=== PATIENT | male | born 1955 | race Caucasian/White ===

== ENCOUNTER 2017-08-04 12:47 | Inpatient (IN) | payer MEDICARE, MEDICAID ==
[~2017-08-04] VITALS: Ht 185.4 cm; Wt 110.0 kg
[~2017-08-04 12:47] MED LIST: ALBU8HFA PO; DABI150C PO; DILT180C96 PO; DOCU-29 PO; ESZO3TAB27 PO; FLUT1DIS7 INH; FURO-150 PO; GABA-532 PO; LEVO50TA PO; METF500T PO; METO-384 PO; MULT-1179 PO; NICO-687 TOP; PANT40TA4 PO; POTA-82 PO; QUET200T3 PO; RISP3TAB11 PO
[2017-08-04] MEDS ORDERED: ipratropium/albuterol 3ml nebule NEB PRN ×2 (13:15→14:10)
[2017-08-04 13:27] LABS: BASOPHILS % (AUTO) 0.3 % (0-1); EOSINOPHILS # (AUTO) 0.2 X10'3 (0-0.9); EOSINOPHILS % (AUTO) 1.4 % (0-6); HEMATOCRIT 44.9 % (42.0-52.0); HEMOGLOBIN 15.5 g/dl (14.0-17.9); LYMPHOCYTES # (AUTO) 1.4 X10'3 (1.1-4.8); LYMPHOCYTES % (AUTO) 13.1 % (21-51); MEAN CORPUSCULAR HEMOGLOBIN 30.4 PG (27.0-31.0); MEAN CORPUSCULAR HGB CONC 34.5 % (33.0-36.5); MEAN PLATELET VOLUME 8.7 FL (7.4-10.4); MONOCYTES # (AUTO) 1.3 X10'3 (0-0.9); MONOCYTES % (AUTO) 12.4 % (2-12); NEUTROPHILS # (AUTO) 7.7 X10'3 (1.8-7.7); NEUTROPHILS % (AUTO) 72.8 % (42-75); PLATELET COUNT 149 X10'3 (140-440); RED BLOOD COUNT 5.11 X10'6 (4.70-6.10); RED CELL DISTRIBUTION WIDTH 13.9 % (11.5-14.5); WHITE BLOOD COUNT 10.6 X10'3 (4.5-11.0)
[2017-08-04 13:37] LABS: PARTIAL THROMBOPLASTIN TIME 30 SECONDS (22-32); PROTHROMBIN TIME 10.7 SECONDS (9.0-12.0)
[2017-08-04 13:44] LABS: LACTIC SEPSIS 1.4 MMOL/L (0.4-2.0)
[2017-08-04 13:46] LABS: ALANINE AMINOTRANSFERASE 28 U/L (12-78); ALBUMIN 3.8 G/DL (3.4-5.0); ALKALINE PHOSPHATASE 70 IU/L (46-116); ANION GAP 13 (8-16); ASPARTATE AMINO TRANSFERASE 24 U/L (10-37); BILIRUBIN,TOTAL 0.4 MG/DL (0.1-1.0); BLOOD UREA NITROGEN 18 MG/DL (7-18); CALCIUM 9.2 MG/DL (8.5-10.1); CHLORIDE 102 MMOL/L (99-107); CREATININE 1.38 MG/DL (0.60-1.10); ETHANOL < 0.010 GM/DL (0.0-0.010); GLUCOSE 108 MG/DL (70-104); POTASSIUM 3.9 MMOL/L (3.5-5.1); SODIUM 138 MMOL/L (135-145); TOTAL CARBON DIOXIDE 22.6 MMOL/L (24-32); TOTAL PROTEIN 7.7 G/DL (6.4-8.2); TROPONIN I < 0.04 NG/ML (0.0-0.05); eGFR 52 ML/MIN
[2017-08-04] MEDS ORDERED: ipratropium/albuterol 3ml nebule NEB SCH (15:00)
[2017-08-04] MEDS: normal saline 1000ml 1,000 ML IV SCH (15:08)
[2017-08-04] MEDS ORDERED: potassium Cl 40MEQ/NS 500ml 500 ML IV PRN ×2 (15:10)
[2017-08-04] MEDS ORDERED: dextrose 50%-water 50ml dispensing syringe IV PRN (15:10)
[2017-08-04] MEDS ORDERED: potassium Cl 20 mEq SR tablet PO PRN ×2 (15:10)
[2017-08-04] MEDS ORDERED: acetaminophen 325mg tablet PO PRN (15:10)
[2017-08-04] MEDS ORDERED: HYDROcodone/acetaminophen 5mg/325mg tablet PO PRN (15:10)
[2017-08-04] MEDS ORDERED: magnesium hydroxide 30ml (MOM) UD suspension PO PRN (15:10)
[2017-08-04] MEDS ORDERED: non-formulary drug (Eszopiclone (Lunesta) 1 TAB) PO PRN (15:10)
[2017-08-04] MEDS ORDERED: mag hydrox/Alum hydrox/simeth 30ml oral suspension PO PRN (15:10)
[2017-08-04] MEDS ORDERED: magnesium 2GM in 50ml NS 50 ML IV PRN (15:10)
[2017-08-04] MEDS ORDERED: thiamine 100mg/ml 2ml inj. IV ONE (15:10)
[2017-08-04] MEDS ORDERED: magnesium 4gm in 100ml NS 100 ML IV PRN (15:10)
[2017-08-04] MEDS ORDERED: haloperidol lactate 5mg/ml inj IM PRN (15:10)
[2017-08-04] MEDS ORDERED: haloperidol 5mg tablet PO PRN (15:10)
[2017-08-04] MEDS ORDERED: magnesium Cl slow-release 64mg tablet PO PRN (15:10)
[2017-08-04] MEDS ORDERED: LORazepam 2 mg/ml vial IV PRN (15:10)
[2017-08-04] MEDS ORDERED: ondansetron/PF 4mg/2ml inj IV PRN (15:10)
[2017-08-04] MEDS ORDERED: docusate sod 250mg capsule PO PRN (15:10)
[2017-08-04] MEDS ORDERED: HYDROcodone/acetaminophen 10/325mg tab PO PRN (15:10)
[2017-08-04] MEDS ORDERED: zolpidem 5mg tablet PO PRN (15:20)
[2017-08-04] MEDS ORDERED: normal saline 1000ml 1,000 ML IV ONE (15:40)
[2017-08-04] MEDS ORDERED: pantoprazole 40 MG vial IV ONE (15:40)
[2017-08-04 16:15] VITALS: BP 137/82
[2017-08-04 17:13] LABS: HEMOGLOBIN A1C 6.1 % (4.5-6.2)
[2017-08-04 18:00] VITALS: BP 149/102
[2017-08-04 18:35] VITALS: BP 146/97
[2017-08-04] MEDS ORDERED: thiamine inj. 100 MG in normal saline 100ml IV soln 99 ML IV ONE (19:05)
[2017-08-04] MEDS: ipratropium/albuterol 3ml nebule NEB SCH ×2 (19:59→23:39)
[2017-08-04] MEDS ORDERED: non-formulary drug (Fluticasone/Salmeterol (Advair 500-50 Diskus) 1 PUFFS) INH SCH (20:00)
[2017-08-04] MEDS ORDERED: METOPROLOL SUCCINATE 50 MG PO SCH (20:00)
[2017-08-04] MEDS: gabapentin 300mg capsule PO SCH (20:38)
[2017-08-04] MEDS: metFORMIN 500mg tablet PO SCH (20:38)
[2017-08-04] MEDS: risperiDONE 0.5mg tablet PO SCH (20:39)
[2017-08-04] MEDS: dabigatran 150mg capsule PO SCH (20:39)
[2017-08-04] MEDS: benzonatate 100mg capsule PO SCH (20:39)
[2017-08-04] MEDS: metoprolol succinate 25mg (24-HOUR) SR. Tablet PO SCH (20:39)
[2017-08-04] MEDS: QUETIAPINE 200 MG TAB.SR.24H PO SCH (20:39)
[2017-08-04] MEDS ORDERED: RISPERIDONE 3 MG PO SCH (21:00)
[2017-08-04 22:00] VITALS: BP 159/86
[2017-08-05] MEDS: normal saline 1000ml 1,000 ML IV SCH ×2 (01:08→01:44)
[2017-08-05 01:28] LABS: CLARITY,URINE CLEAR (Clear); COLOR,URINE YELLOW (Yellow); GLUCOSE, URINE NEGATIVE (Neg); KETONES,URINE 15 mg/dl (Neg); LEUKOCYTE ESTERASE ,URINE NEGATIVE (Neg); NITRITES, URINE NEGATIVE (Neg); OCCULT BLOOD,URINE SMALL (Neg); PROTEIN,URINE 30 mg/dl (Neg); UROBILINOGEN,URINE 0.2 E.U/dL (0.2-1.0)
[2017-08-05 01:33] LABS: BACTERIA,URINE NONE SEEN /HPF (Neg); RBC,URINE 0-2 /HPF (0-2); SQUAMOUS EPITHELIAL CELL,UR FEW /LPF (FEW); UA COLLECTION TYPE URINAL; WBC,URINE NONE SEEN /HPF (0-4)
[2017-08-05 01:44] LABS: URINE AMPHETAMINE SCREEN NEGATIVE (Neg); URINE BARBITUATE SCREEN NEGATIVE (Neg); URINE BENZODIAZEPINES SCREEN NEGATIVE (Neg); URINE CANNABINOID SCREEN POSITIVE (Neg); URINE COCAINE SCREEN NEGATIVE (Neg); URINE METHADONE SCREEN NEGATIVE (Neg); URINE OPIATE SCREEN NEGATIVE (Neg); URINE PHENCYCLIDINE SCREEN NEGATIVE (Neg)
[2017-08-05 02:15] VITALS: BP 154/89
[2017-08-05] MEDS: ipratropium/albuterol 3ml nebule NEB SCH ×6 (04:05→22:45)
[2017-08-05 06:00] VITALS: BP 137/88
[2017-08-05 06:10] LABS: BASOPHILS % (AUTO) 0.4 % (0-1); EOSINOPHILS # (AUTO) 0.1 X10'3 (0-0.9); EOSINOPHILS % (AUTO) 1.9 % (0-6); HEMATOCRIT 40.3 % (42.0-52.0); LYMPHOCYTES # (AUTO) 1.2 X10'3 (1.1-4.8); LYMPHOCYTES % (AUTO) 17.8 % (21-51); MEAN CORPUSCULAR HEMOGLOBIN 30.5 PG (27.0-31.0); MEAN CORPUSCULAR HGB CONC 34.7 % (33.0-36.5); MEAN CORPUSCULAR VOLUME 87.9 FL (78-98); MEAN PLATELET VOLUME 8.6 FL (7.4-10.4); MONOCYTES % (AUTO) 14.4 % (2-12); NEUTROPHILS # (AUTO) 4.5 X10'3 (1.8-7.7); NEUTROPHILS % (AUTO) 65.5 % (42-75); PLATELET COUNT 108 X10'3 (140-440); RED BLOOD COUNT 4.59 X10'6 (4.70-6.10); WHITE BLOOD COUNT 6.9 X10'3 (4.5-11.0)
[2017-08-05 06:21] LABS: INR 1.1 INR; PROTHROMBIN TIME 10.9 SECONDS (9.0-12.0)
[2017-08-05 06:23] LABS: ANION GAP 12 (8-16); BLOOD UREA NITROGEN 17 MG/DL (7-18); BUN/CREATININE RATIO 13.3 (5.4-32.0); CALCIUM 8.3 MG/DL (8.5-10.1); CHLORIDE 104 MMOL/L (99-107); CREATININE 1.28 MG/DL (0.60-1.10); GLUCOSE 99 MG/DL (70-104); MAGNESIUM 1.9 MG/DL (1.5-2.4); POTASSIUM 3.5 MMOL/L (3.5-5.1); SODIUM 139 MMOL/L (135-145); TOTAL CARBON DIOXIDE 23.1 MMOL/L (24-32); eGFR 57 ML/MIN
[2017-08-05] MEDS: fluticasone/vilanterol 200mcg/25mcg inhaler IH SCH (08:00)
[2017-08-05] MEDS: K and/or MAG REPLACEMENT MC SCH (08:00)
[2017-08-05] MEDS ORDERED: non-formulary drug (Levothyroxine Sodium (Synthroid) 1 TAB) PO SCH (08:00)
[2017-08-05] MEDS ORDERED: non-formulary drug (Potassium Chloride 1 TAB) PO SCH (08:00)
[2017-08-05] MEDS: levoTHYROXINE 25mcg tablet PO SCH (08:30)
[2017-08-05] MEDS: potassium Cl 20 mEq SR tablet PO SCH (08:31)
[2017-08-05] MEDS: dabigatran 150mg capsule PO SCH ×2 (08:31→19:44)
[2017-08-05] MEDS: furosemide 20MG tablet PO SCH (08:31)
[2017-08-05] MEDS: metoprolol succinate 25mg (24-HOUR) SR. Tablet PO SCH ×2 (08:31→19:44)
[2017-08-05] MEDS: metFORMIN 500mg tablet PO SCH ×2 (08:31→19:43)
[2017-08-05] MEDS: pantoprazole 40mg Tablet.DR PO SCH (08:31)
[2017-08-05] MEDS: diltiazem CD 180mg cap (once-daily) PO SCH (08:31)
[2017-08-05] MEDS: multivitamins, therapeutics tablet PO SCH (08:31)
[2017-08-05] MEDS: benzonatate 100mg capsule PO SCH ×2 (08:32→19:45)
[2017-08-05 10:00] VITALS: BP 137/93
[2017-08-05 15:00] VITALS: BP 148/98
[2017-08-05 18:00] VITALS: BP 148/98
[2017-08-05] MEDS: QUETIAPINE 200 MG TAB.SR.24H PO SCH (19:44)
[2017-08-05] MEDS: risperiDONE 0.5mg tablet PO SCH (19:45)
[2017-08-05] MEDS: gabapentin 300mg capsule PO SCH (19:45)
[2017-08-05 22:00] VITALS: BP 144/94
[2017-08-05] MEDS: lisinopril 5mg tablet PO SCH (22:02)
[2017-08-06] MEDS: ipratropium/albuterol 3ml nebule NEB SCH ×6 (02:34→22:54)
[2017-08-06 06:00] VITALS: BP 135/90
[2017-08-06 06:00] LABS: BASOPHILS % (AUTO) 0.5 % (0-1); EOSINOPHILS # (AUTO) 0.1 X10'3 (0-0.9); EOSINOPHILS % (AUTO) 2.1 % (0-6); HEMATOCRIT 38.3 % (42.0-52.0); HEMOGLOBIN 13.3 g/dl (14.0-17.9); LYMPHOCYTES # (AUTO) 1.4 X10'3 (1.1-4.8); LYMPHOCYTES % (AUTO) 19.4 % (21-51); MEAN CORPUSCULAR HEMOGLOBIN 30.1 PG (27.0-31.0); MEAN CORPUSCULAR HGB CONC 34.7 % (33.0-36.5); MEAN PLATELET VOLUME 8.6 FL (7.4-10.4); NEUTROPHILS # (AUTO) 4.6 X10'3 (1.8-7.7); PLATELET COUNT 118 X10'3 (140-440); WHITE BLOOD COUNT 7.2 X10'3 (4.5-11.0)
[2017-08-06 06:08] LABS: INR 1.1 INR; PROTHROMBIN TIME 11.2 SECONDS (9.0-12.0)
[2017-08-06 06:30] LABS: ANION GAP 12 (8-16); BLOOD UREA NITROGEN 17 MG/DL (7-18); CALCIUM 8.4 MG/DL (8.5-10.1); CHLORIDE 101 MMOL/L (99-107); CHOL/HDL RATIO 3.4 (0.00-4.99); CHOLESTEROL 127 MG/DL (0-200); CREATININE 1.31 MG/DL (0.60-1.10); GLUCOSE 114 MG/DL (70-104); HDL CHOLESTEROL 37 MG/DL (35-60); LDL CHOLESTEROL 68 MG/DL (50-100); MAGNESIUM 1.6 MG/DL (1.5-2.4); POTASSIUM 3.4 MMOL/L (3.5-5.1); SODIUM 137 MMOL/L (135-145); TOTAL CARBON DIOXIDE 23.6 MMOL/L (24-32); TRIGLYCERIDES 73 MG/DL (20-135); eGFR 55 ML/MIN
[2017-08-06] MEDS: K and/or MAG REPLACEMENT MC SCH (08:00)
[2017-08-06] MEDS: fluticasone/vilanterol 200mcg/25mcg inhaler IH SCH (08:10)
[2017-08-06] MEDS: lisinopril 5mg tablet PO SCH (08:58)
[2017-08-06] MEDS: diltiazem CD 180mg cap (once-daily) PO SCH (08:58)
[2017-08-06] MEDS: metoprolol succinate 25mg (24-HOUR) SR. Tablet PO SCH ×2 (08:58→20:24)
[2017-08-06] MEDS: levoTHYROXINE 25mcg tablet PO SCH (08:58)
[2017-08-06] MEDS: pantoprazole 40mg Tablet.DR PO SCH (08:58)
[2017-08-06] MEDS: metFORMIN 500mg tablet PO SCH ×2 (08:58→20:24)
[2017-08-06] MEDS: potassium Cl 20 mEq SR tablet PO SCH (08:58)
[2017-08-06] MEDS: dabigatran 150mg capsule PO SCH ×2 (08:59→20:25)
[2017-08-06] MEDS: furosemide 20MG tablet PO SCH (08:59)
[2017-08-06] MEDS: benzonatate 100mg capsule PO SCH (08:59)
[2017-08-06] MEDS: multivitamins, therapeutics tablet PO SCH (08:59)
[2017-08-06 10:00] VITALS: BP 138/96
[2017-08-06] MEDS ORDERED: benzonatate 100mg capsule PO PRN (10:10)
[2017-08-06] MEDS ORDERED: polyethylene glycol 3350 17gm powd pack PO PRN (10:10)
[2017-08-06] MEDS: LORazepam 1 MG tablet PO PRN ×2 (12:18→22:33)
[2017-08-06] MEDS ORDERED: LORazepam 2 mg/ml vial IV PRN (15:10)
[2017-08-06] MEDS ORDERED: LORazepam 1 MG tablet PO PRN (15:10)
[2017-08-06 18:00] VITALS: BP 152/102
[2017-08-06] MEDS: gabapentin 300mg capsule PO SCH (20:24)
[2017-08-06] MEDS: risperiDONE 0.5mg tablet PO SCH (20:25)
[2017-08-06] MEDS: QUETIAPINE 200 MG TAB.SR.24H PO SCH (20:25)
[2017-08-06 22:00] VITALS: BP 149/104
[2017-08-07] MEDS: ipratropium/albuterol 3ml nebule NEB SCH ×6 (02:57→23:28)
[2017-08-07 06:00] VITALS: BP 145/98
[2017-08-07 06:01] LABS: BASOPHILS % (AUTO) 0.4 % (0-1); EOSINOPHILS # (AUTO) 0.1 X10'3 (0-0.9); EOSINOPHILS % (AUTO) 2.1 % (0-6); HEMATOCRIT 39.4 % (42.0-52.0); HEMOGLOBIN 13.5 g/dl (14.0-17.9); LYMPHOCYTES # (AUTO) 1.5 X10'3 (1.1-4.8); LYMPHOCYTES % (AUTO) 22.8 % (21-51); MEAN CORPUSCULAR HEMOGLOBIN 30.2 PG (27.0-31.0); MEAN CORPUSCULAR HGB CONC 34.4 % (33.0-36.5); MEAN CORPUSCULAR VOLUME 87.9 FL (78-98); MEAN PLATELET VOLUME 8.5 FL (7.4-10.4); MONOCYTES # (AUTO) 0.7 X10'3 (0-0.9); MONOCYTES % (AUTO) 11.2 % (2-12); NEUTROPHILS # (AUTO) 4.1 X10'3 (1.8-7.7); NEUTROPHILS % (AUTO) 63.5 % (42-75); PLATELET COUNT 118 X10'3 (140-440); RED BLOOD COUNT 4.48 X10'6 (4.70-6.10); RED CELL DISTRIBUTION WIDTH 13.7 % (11.5-14.5); WHITE BLOOD COUNT 6.5 X10'3 (4.5-11.0)
[2017-08-07 06:18] LABS: ANION GAP 10 (8-16); BLOOD UREA NITROGEN 16 MG/DL (7-18); BUN/CREATININE RATIO 12.9 (5.4-32.0); CALCIUM 8.9 MG/DL (8.5-10.1); CHLORIDE 101 MMOL/L (99-107); CREATININE 1.24 MG/DL (0.60-1.10); GLUCOSE 112 MG/DL (70-104); MAGNESIUM 1.6 MG/DL (1.5-2.4); POTASSIUM 3.7 MMOL/L (3.5-5.1); SODIUM 136 MMOL/L (135-145); eGFR 59 ML/MIN
[2017-08-07] MEDS: fluticasone/vilanterol 200mcg/25mcg inhaler IH SCH (07:27)
[2017-08-07] MEDS: K and/or MAG REPLACEMENT MC SCH (08:00)
[2017-08-07] MEDS: metFORMIN 500mg tablet PO SCH ×2 (08:01→20:53)
[2017-08-07] MEDS: potassium Cl 20 mEq SR tablet PO SCH (08:01)
[2017-08-07] MEDS: diltiazem CD 180mg cap (once-daily) PO SCH (08:01)
[2017-08-07] MEDS: aspirin 81mg tablet.DR PO SCH (08:01)
[2017-08-07] MEDS: lisinopril 5mg tablet PO SCH (08:01)
[2017-08-07] MEDS: metoprolol succinate 25mg (24-HOUR) SR. Tablet PO SCH ×2 (08:02→20:54)
[2017-08-07] MEDS: furosemide 20MG tablet PO SCH (08:02)
[2017-08-07] MEDS: dabigatran 150mg capsule PO SCH ×2 (08:02→20:53)
[2017-08-07] MEDS: pantoprazole 40mg Tablet.DR PO SCH (08:02)
[2017-08-07] MEDS: multivitamins, therapeutics tablet PO SCH (08:02)
[2017-08-07] MEDS: levoTHYROXINE 25mcg tablet PO SCH (08:02)
[2017-08-07] MEDS: polyethylene glycol 3350 17gm powd pack PO SCH (08:05)
[2017-08-07 10:00] VITALS: BP 162/107
[2017-08-07] MEDS: LORazepam 1 MG tablet PO PRN ×3 (13:13→22:27)
[2017-08-07] MEDS: thiamine 100mg tablet PO SCH (17:10)
[2017-08-07] MEDS: folic acid 1mg tablet PO SCH (17:10)
[2017-08-07 18:00] VITALS: BP 141/96
[2017-08-07] MEDS: gabapentin 300mg capsule PO SCH (21:40)
[2017-08-07] MEDS: QUETIAPINE 200 MG TAB.SR.24H PO SCH (21:41)
[2017-08-07] MEDS: risperiDONE 0.5mg tablet PO SCH (21:41)
[2017-08-07 22:00] VITALS: BP 131/88
[2017-08-08] MEDS: ipratropium/albuterol 3ml nebule NEB SCH ×4 (02:53→15:00)
[2017-08-08 06:00] VITALS: BP_SYST 124; BP_SYST 141; BP_DIAS 86; BP_DIAS 96
[2017-08-08 06:12] LABS: BASOPHILS % (AUTO) 0.2 % (0-1); EOSINOPHILS # (AUTO) 0.2 X10'3 (0-0.9); EOSINOPHILS % (AUTO) 2.5 % (0-6); HEMATOCRIT 42.9 % (42.0-52.0); HEMOGLOBIN 14.9 g/dl (14.0-17.9); LYMPHOCYTES # (AUTO) 1.6 X10'3 (1.1-4.8); LYMPHOCYTES % (AUTO) 20.4 % (21-51); MEAN CORPUSCULAR HEMOGLOBIN 30.1 PG (27.0-31.0); MEAN CORPUSCULAR HGB CONC 34.8 % (33.0-36.5); MEAN CORPUSCULAR VOLUME 86.5 FL (78-98); MEAN PLATELET VOLUME 8.6 FL (7.4-10.4); MONOCYTES # (AUTO) 0.7 X10'3 (0-0.9); MONOCYTES % (AUTO) 8.5 % (2-12); NEUTROPHILS # (AUTO) 5.5 X10'3 (1.8-7.7); NEUTROPHILS % (AUTO) 68.4 % (42-75); PLATELET COUNT 145 X10'3 (140-440); RED BLOOD COUNT 4.96 X10'6 (4.70-6.10); RED CELL DISTRIBUTION WIDTH 13.7 % (11.5-14.5)
[2017-08-08 06:23] LABS: ALBUMIN 3.7 G/DL (3.4-5.0); ANION GAP 11 (8-16); BLOOD UREA NITROGEN 21 MG/DL (7-18); BUN/CREATININE RATIO 15.2 (5.4-32.0); CALCIUM 9.2 MG/DL (8.5-10.1); CHLORIDE 97 MMOL/L (99-107); CREATININE 1.38 MG/DL (0.60-1.10); GLUCOSE 120 MG/DL (70-104); MAGNESIUM 1.6 MG/DL (1.5-2.4); POTASSIUM 3.8 MMOL/L (3.5-5.1); SODIUM 134 MMOL/L (135-145); TOTAL CARBON DIOXIDE 25.7 MMOL/L (24-32); eGFR 52 ML/MIN
[2017-08-08] MEDS: polyethylene glycol 3350 17gm powd pack PO SCH (07:17)
[2017-08-08] MEDS: multivitamins, therapeutics tablet PO SCH (07:19)
[2017-08-08] MEDS: diltiazem CD 180mg cap (once-daily) PO SCH (07:19)
[2017-08-08] MEDS: thiamine 100mg tablet PO SCH (07:19)
[2017-08-08] MEDS: aspirin 81mg tablet.DR PO SCH (07:19)
[2017-08-08] MEDS: metFORMIN 500mg tablet PO SCH (07:19)
[2017-08-08] MEDS: levoTHYROXINE 25mcg tablet PO SCH (07:19)
[2017-08-08] MEDS: lisinopril 5mg tablet PO SCH (07:19)
[2017-08-08] MEDS: furosemide 20MG tablet PO SCH (07:19)
[2017-08-08] MEDS: folic acid 1mg tablet PO SCH (07:19)
[2017-08-08] MEDS: pantoprazole 40mg Tablet.DR PO SCH (07:19)
[2017-08-08] MEDS: metoprolol succinate 25mg (24-HOUR) SR. Tablet PO SCH (07:20)
[2017-08-08] MEDS: potassium Cl 20 mEq SR tablet PO SCH (07:20)
[2017-08-08] MEDS: fluticasone/vilanterol 200mcg/25mcg inhaler IH SCH (07:45)
[2017-08-08] MEDS: K and/or MAG REPLACEMENT MC SCH (08:00)
[2017-08-08] MEDS: dabigatran 150mg capsule PO SCH (08:47)
[2017-08-08 10:00] VITALS: BP 145/86
[2017-08-08] MEDS ORDERED: LORazepam 1 MG tablet PO PRN (15:10)
[2017-08-08] MEDS ORDERED: LORazepam 2 mg/ml vial IV PRN (15:10)
== END 2017-08-08 17:00 | disposition home or self-care (01) | DRG 71 ==
LOC: ER 12:47 → ED HOLD 15:08 → EDBEDREQ 15:50 → ORTHO 4S 16:00
PROVIDERS: ADMIT Legal Medicine; ATTEND Family Medicine
PROC: 4A00X4Z Measurement of Central Nervous Electrical Activity, External Approach (ICD-10-PCS; principal; 2017-08-06)
DX: G93.41 Metabolic encephalopathy (principal); F13.20 Sedative, hypnotic or anxiolytic dependence, uncomplicated; E11.22 Type 2 diabetes mellitus with diabetic chronic kidney disease; I13.0 Hypertensive heart and chronic kidney disease with heart failure and stage 1 through stage 4 chronic kidney disease, or unspecified chronic kidney disease; I50.9 Heart failure, unspecified; I48.91 Unspecified atrial fibrillation; N18.3 Chronic kidney disease, stage 3 (moderate); E66.9 Obesity, unspecified; F41.9 Anxiety disorder, unspecified; F31.9 Bipolar disorder, unspecified; J44.9 Chronic obstructive pulmonary disease, unspecified; K59.00 Constipation, unspecified; F10.10 Alcohol abuse, uncomplicated; Z60.2 Problems related to living alone; Z95.0 Presence of cardiac pacemaker; Z88.8 Allergy status to other drugs, medicaments and biological substances; Z79.84 Long term (current) use of oral hypoglycemic drugs; Z79.899 Other long term (current) drug therapy; Z86.73 Personal history of transient ischemic attack (TIA), and cerebral infarction without residual deficits; Z68.32 Body mass index [BMI] 32.0-32.9, adult
CPT/HCPCS: 36415; 70450; 71045; 80048; 80053; 80061; 80305; 80320; 81001; 82140; 82948; 83036; 83605; 83735; 84443; 84484; 85025; 85610; 85730; 87040; 87070; 87088; 93308; 93880; 94640; 94760; 95816; 97110; 97116; 97162; 99285; A4315; A4344; A4353; C9113; J2060; J3411; J7030

== ENCOUNTER 2017-09-20 12:35 | Inpatient (IN) | payer MEDICARE, MEDICAID ==
[~2017-09-20] VITALS: Ht 175.3 cm; Wt 97.0 kg
[~2017-09-20 12:35] MED LIST changes: -FURO-150 PO; -PANT40TA4 PO; -POTA-82 PO
[2017-09-20] MEDS ORDERED: magnesium 2GM in 50ml NS 50 ML IV ONE (12:50)
[2017-09-20] MEDS ORDERED: methylPREDNISolone sod succ 125mg/2ml vial IV ONE (12:50)
[2017-09-20 13:01] LABS: BASOPHILS # (AUTO) 0.1 X10'3 (0-0.2); BASOPHILS % (AUTO) 0.9 % (0-1); EOSINOPHILS # (AUTO) 0.2 X10'3 (0-0.9); EOSINOPHILS % (AUTO) 1.6 % (0-6); HEMATOCRIT 42.3 % (42.0-52.0); HEMOGLOBIN 14.6 g/dl (14.0-17.9); LYMPHOCYTES # (AUTO) 1.7 X10'3 (1.1-4.8); LYMPHOCYTES % (AUTO) 16.1 % (21-51); MEAN CORPUSCULAR HEMOGLOBIN 29.9 PG (27.0-31.0); MEAN CORPUSCULAR HGB CONC 34.4 % (33.0-36.5); MEAN CORPUSCULAR VOLUME 86.8 FL (78-98); MEAN PLATELET VOLUME 8.5 FL (7.4-10.4); MONOCYTES # (AUTO) 1.3 X10'3 (0-0.9); MONOCYTES % (AUTO) 11.8 % (2-12); NEUTROPHILS # (AUTO) 7.3 X10'3 (1.8-7.7); NEUTROPHILS % (AUTO) 69.6 % (42-75); PLATELET COUNT 147 X10'3 (140-440); RED BLOOD COUNT 4.88 X10'6 (4.70-6.10); RED CELL DISTRIBUTION WIDTH 14.3 % (11.5-14.5); WHITE BLOOD COUNT 10.6 X10'3 (4.5-11.0)
[2017-09-20 13:10] LABS: INR 1.1 INR; PARTIAL THROMBOPLASTIN TIME 34 SECONDS (22-32); PROTHROMBIN TIME 11.4 SECONDS (9.0-12.0)
[2017-09-20] MEDS ORDERED: ipratropium/albuterol 3ml nebule NEB ONE (13:20)
[2017-09-20 13:28] LABS: ALANINE AMINOTRANSFERASE 36 U/L (12-78); ALBUMIN 3.3 G/DL (3.4-5.0); ALBUMIN/GLOBULIN RATIO 0.9 (1.1-1.5); ALKALINE PHOSPHATASE 67 IU/L (46-116); ANION GAP 16 (8-16); ASPARTATE AMINO TRANSFERASE 70 U/L (10-37); BLOOD UREA NITROGEN 25 MG/DL (7-18); BUN/CREATININE RATIO 15.7 (5.4-32.0); CALCIUM 9.1 MG/DL (8.5-10.1); CHLORIDE 99 MMOL/L (99-107); CREATININE 1.59 MG/DL (0.60-1.10); GLUCOSE 122 MG/DL (70-104); MAGNESIUM 1.8 MG/DL (1.5-2.4); POTASSIUM 3.5 MMOL/L (3.5-5.1); SODIUM 136 MMOL/L (135-145); TOTAL CARBON DIOXIDE 20.9 MMOL/L (24-32); TOTAL PROTEIN 7.1 G/DL (6.4-8.2); eGFR 44 ML/MIN
[2017-09-20] MEDS ORDERED: aspirin 325mg tablet PO ONE (13:30)
[2017-09-20 14:06] LABS: ABG HCO3 20.2 mmol/L (22.0-26.0); ABG OXYGEN SATURATION 91.9 % (95-98); ABG PCO2 (T) 28.3 mmHg (35.0-48.0); ABG PH (T) 7.471 (7.350-7.450); ALLEN'S TEST Positive; FCOHb 1.2 % (0.5-1.5); FMetHb 0.2 % (0.3-1.12); FO2Hb 90.6 % (94-100); TOTAL HEMOGLOBIN 14.9 G/dl (14.0-18.0)
[2017-09-20] MEDS ORDERED: morphine 4 MG/ML inj SYRINge IV PRN (14:30)
[2017-09-20] MEDS ORDERED: dextrose ORAL solution 15 GM/59 ML bottle PO PRN ×2 (14:35)
[2017-09-20] MEDS ORDERED: glucagon, human recombinant 1mg kit SUBCUT PRN (14:35)
[2017-09-20] MEDS ORDERED: dextrose 50%-water 50ml dispensing syringe IV PRN ×2 (14:35)
[2017-09-20] MEDS ORDERED: MESSAGE TO PHARMACY PO ONE (14:35)
[2017-09-20 16:13] LABS: HEMOGLOBIN A1C 6.1 % (4.5-6.2)
[2017-09-20] MEDS ORDERED: non-formulary drug (albuterol inhaler (Pro-Air Inhaler) 0 PUFFS) PO PRN (17:20)
[2017-09-20] MEDS ORDERED: non-formulary drug (Eszopiclone (Lunesta) 1 TAB) PO PRN (17:20)
[2017-09-20] MEDS ORDERED: furosemide 10 MG/1 ML 10ml inj IV ONE (17:45)
[2017-09-20 19:00] VITALS: BP 130/85
[2017-09-20] MEDS ORDERED: METOPROLOL SUCCINATE 50 MG PO SCH (20:00)
[2017-09-20] MEDS ORDERED: non-formulary drug (Fluticasone/Salmeterol (Advair 500-50 Diskus) 1 PUFFS) INH SCH (20:00)
[2017-09-20] MEDS: gabapentin 300mg capsule PO SCH (20:54)
[2017-09-20] MEDS: metoprolol succinate 25mg (24-HOUR) SR. Tablet PO SCH (20:54)
[2017-09-20] MEDS: dabigatran 150mg capsule PO SCH (20:54)
[2017-09-20] MEDS: methylPREDNISolone sod succ 125mg/2ml vial IV SCH (20:54)
[2017-09-20] MEDS: risperiDONE 0.5mg tablet PO SCH (20:54)
[2017-09-20] MEDS: insulin glargine (Lantus) pen - multi-dose SQ SCH (20:55)
[2017-09-20] MEDS ORDERED: RISPERIDONE 3 MG PO SCH (21:00)
[2017-09-20] MEDS: LORazepam 0.5 MG tablet PO PRN (22:01)
[2017-09-20] MEDS: zolpidem 5mg tablet PO PRN (22:58)
[2017-09-20 23:00] VITALS: BP 98/65
[2017-09-21 01:14] LABS: BASOPHILS # (AUTO) 0.1 X10'3 (0-0.2); BASOPHILS % (AUTO) 1.1 % (0-1); EOSINOPHILS % (AUTO) 0.1 % (0-6); HEMATOCRIT 43.5 % (42.0-52.0); HEMOGLOBIN 13.9 g/dl (14.0-17.9); LYMPHOCYTES # (AUTO) 0.5 X10'3 (1.1-4.8); LYMPHOCYTES % (AUTO) 5.5 % (21-51); MEAN CORPUSCULAR HEMOGLOBIN 27.8 PG (27.0-31.0); MEAN PLATELET VOLUME 9.8 FL (7.4-10.4); MONOCYTES # (AUTO) 0.3 X10'3 (0-0.9); MONOCYTES % (AUTO) 3.4 % (2-12); NEUTROPHILS # (AUTO) 8.6 X10'3 (1.8-7.7); NEUTROPHILS % (AUTO) 89.9 % (42-75); PLATELET COUNT 160 X10'3 (140-440); RED CELL DISTRIBUTION WIDTH 13.6 % (11.5-14.5); WHITE BLOOD COUNT 9.5 X10'3 (4.5-11.0)
[2017-09-21 01:22] LABS: ANION GAP 10 (8-16); BLOOD UREA NITROGEN 33 MG/DL (7-18); BUN/CREATININE RATIO 20.9 (5.4-32.0); CHLORIDE 99 MMOL/L (99-107); CREATININE 1.58 MG/DL (0.60-1.10); GLUCOSE 209 MG/DL (70-104); POTASSIUM 4.2 MMOL/L (3.5-5.1); SODIUM 133 MMOL/L (135-145); TOTAL CARBON DIOXIDE 24.1 MMOL/L (24-32); eGFR 44 ML/MIN
[2017-09-21 03:00] VITALS: BP 114/76
[2017-09-21 06:30] VITALS: BP 120/73
[2017-09-21] MEDS: multivitamins, therapeutics tablet PO SCH (07:20)
[2017-09-21] MEDS: levoTHYROXINE 25mcg tablet PO SCH (07:20)
[2017-09-21] MEDS: diltiazem CD 180mg cap (once-daily) PO SCH (07:21)
[2017-09-21] MEDS: metoprolol succinate 25mg (24-HOUR) SR. Tablet PO SCH ×2 (07:21→20:47)
[2017-09-21] MEDS: methylPREDNISolone sod succ 125mg/2ml vial IV SCH ×2 (07:22→20:47)
[2017-09-21] MEDS: nicotine 21mg patch - 24 hr TD SCH (07:27)
[2017-09-21] MEDS ORDERED: non-formulary drug (Levothyroxine Sodium (Synthroid) 1 TAB) PO SCH (08:00)
[2017-09-21] MEDS: dabigatran 150mg capsule PO SCH (08:45)
[2017-09-21] MEDS: aspirin 325mg tablet PO SCH (08:47)
[2017-09-21 10:28] LABS: CHOL/HDL RATIO 3.2 (0.00-4.99); CHOLESTEROL 158 MG/DL (0-200); HDL CHOLESTEROL 50 MG/DL (35-60); LDL CHOLESTEROL 87 MG/DL (50-100); TRIGLYCERIDES 79 MG/DL (20-135)
[2017-09-21] MEDS: levoFLOXACIN 750MG TABLET PO SCH (10:51)
[2017-09-21] MEDS: LORazepam 0.5 MG tablet PO PRN ×2 (10:51→20:47)
[2017-09-21 11:00] VITALS: BP 109/77
[2017-09-21] MEDS: fluticasone/vilanterol 200mcg/25mcg inhaler IH SCH (11:38)
[2017-09-21 15:00] VITALS: BP 112/76
[2017-09-21] MEDS: magnesium hydroxide 30ml (MOM) UD suspension PO PRN (16:24)
[2017-09-21 19:00] VITALS: BP 131/90
[2017-09-21] MEDS: gabapentin 300mg capsule PO SCH (20:47)
[2017-09-21] MEDS: risperiDONE 0.5mg tablet PO SCH (20:47)
[2017-09-21] MEDS: lactobacillus rhamnosus 10,000 MMU CELLS/CAPSULE PO SCH (20:47)
[2017-09-21] MEDS: insulin glargine (Lantus) pen - multi-dose SQ SCH (21:00)
[2017-09-21] MEDS: zolpidem 5mg tablet PO PRN (22:36)
[2017-09-21 23:00] VITALS: BP 130/96
[2017-09-22] VITALS (19 sets, daily range): BP systolic 130–165; BP diastolic 85–114
[2017-09-22] MEDS: LORazepam 0.5 MG tablet PO PRN ×2 (00:36→17:44)
[2017-09-22] MEDS: sodium chloride 0.45% 1,000 ML IV SCH ×2 (00:36→13:20)
[2017-09-22 05:55] LABS: BASOPHILS % (AUTO) 0.1 % (0-1); EOSINOPHILS # (AUTO) 0.1 X10'3 (0-0.9); EOSINOPHILS % (AUTO) 1.2 % (0-6); HEMATOCRIT 42.1 % (42.0-52.0); HEMOGLOBIN 14.3 g/dl (14.0-17.9); LYMPHOCYTES # (AUTO) 0.5 X10'3 (1.1-4.8); MEAN CORPUSCULAR HEMOGLOBIN 29.9 PG (27.0-31.0); MEAN PLATELET VOLUME 8.7 FL (7.4-10.4); MONOCYTES # (AUTO) 0.3 X10'3 (0-0.9); MONOCYTES % (AUTO) 3.1 % (2-12); NEUTROPHILS # (AUTO) 9.9 X10'3 (1.8-7.7); NEUTROPHILS % (AUTO) 90.6 % (42-75); PLATELET COUNT 159 X10'3 (140-440); RED BLOOD COUNT 4.79 X10'6 (4.70-6.10); RED CELL DISTRIBUTION WIDTH 14.8 % (11.5-14.5); WHITE BLOOD COUNT 10.9 X10'3 (4.5-11.0)
[2017-09-22 06:31] LABS: ALBUMIN 3.1 G/DL (3.4-5.0); ANION GAP 10 (8-16); BLOOD UREA NITROGEN 34 MG/DL (7-18); BUN/CREATININE RATIO 24.1 (5.4-32.0); CHLORIDE 99 MMOL/L (99-107); CREATININE 1.41 MG/DL (0.60-1.10); GLUCOSE 171 MG/DL (70-104); POTASSIUM 4.4 MMOL/L (3.5-5.1); SODIUM 133 MMOL/L (135-145); TOTAL CARBON DIOXIDE 24.4 MMOL/L (24-32); eGFR 51 ML/MIN
[2017-09-22] MEDS: diltiazem CD 180mg cap (once-daily) PO SCH (07:46)
[2017-09-22] MEDS: lactobacillus rhamnosus 10,000 MMU CELLS/CAPSULE PO SCH ×2 (07:46→19:06)
[2017-09-22] MEDS: methylPREDNISolone sod succ 125mg/2ml vial IV SCH ×2 (07:46→19:06)
[2017-09-22] MEDS: aspirin 325mg tablet PO SCH (07:46)
[2017-09-22] MEDS: metoprolol succinate 25mg (24-HOUR) SR. Tablet PO SCH ×2 (07:47→19:05)
[2017-09-22] MEDS: nicotine 21mg patch - 24 hr TD SCH (07:47)
[2017-09-22] MEDS: multivitamins, therapeutics tablet PO SCH (07:47)
[2017-09-22] MEDS: levoTHYROXINE 25mcg tablet PO SCH (07:47)
[2017-09-22] MEDS ORDERED: midazolam 2 mg/2 ml injection ONE (08:04)
[2017-09-22] MEDS ORDERED: iohexol 350MG/ML 100ml bottle IV ONE (08:04)
[2017-09-22] MEDS ORDERED: fentaNYL/PF 50MCG/1 ML 2ML syringe ONE (08:04)
[2017-09-22] MEDS ORDERED: LIDOcaine 1% w/EPI 1:100,000 30ml vial (MDV) ONE (08:04)
[2017-09-22] MEDS ORDERED: normal saline 1000ml 1,000 ML IV SCH (11:20)
[2017-09-22] MEDS: levoFLOXACIN 750MG TABLET PO SCH (11:46)
[2017-09-22] MEDS: fluticasone/vilanterol 200mcg/25mcg inhaler IH SCH (13:05)
[2017-09-22] MEDS: lisinopril 2.5mg tablet PO SCH (16:37)
[2017-09-22] MEDS: albuterol 2.5 MG/3 ML nebule NEB PRN (17:49)
[2017-09-22] MEDS: OXAZEpam 15mg capsule PO PRN (19:05)
[2017-09-22] MEDS: risperiDONE 0.5mg tablet PO SCH (20:28)
[2017-09-22] MEDS: gabapentin 300mg capsule PO SCH (20:28)
[2017-09-22] MEDS: insulin glargine (Lantus) pen - multi-dose SQ SCH (21:00)
[2017-09-23] MEDS: sodium chloride 0.45% 1,000 ML IV SCH (02:40)
[2017-09-23 03:00] VITALS: BP 141/89
[2017-09-23 05:27] LABS: BASOPHILS % (AUTO) 0 % (0-1); EOSINOPHILS # (AUTO) 0.1 X10'3 (0-0.9); EOSINOPHILS % (AUTO) 1.1 % (0-6); HEMATOCRIT 42.7 % (42.0-52.0); HEMOGLOBIN 14.4 g/dl (14.0-17.9); LYMPHOCYTES # (AUTO) 0.5 X10'3 (1.1-4.8); LYMPHOCYTES % (AUTO) 4.3 % (21-51); MEAN CORPUSCULAR HGB CONC 33.8 % (33.0-36.5); MEAN CORPUSCULAR VOLUME 88.8 FL (78-98); MEAN PLATELET VOLUME 8.9 FL (7.4-10.4); MONOCYTES # (AUTO) 0.4 X10'3 (0-0.9); MONOCYTES % (AUTO) 3.4 % (2-12); NEUTROPHILS # (AUTO) 10.5 X10'3 (1.8-7.7); NEUTROPHILS % (AUTO) 91.2 % (42-75); PLATELET COUNT 172 X10'3 (140-440); RED BLOOD COUNT 4.81 X10'6 (4.70-6.10); RED CELL DISTRIBUTION WIDTH 14.1 % (11.5-14.5); WHITE BLOOD COUNT 11.5 X10'3 (4.5-11.0)
[2017-09-23 05:44] LABS: ALBUMIN 2.9 G/DL (3.4-5.0); ANION GAP 8 (8-16); BLOOD UREA NITROGEN 28 MG/DL (7-18); BUN/CREATININE RATIO 21.1 (5.4-32.0); CHLORIDE 101 MMOL/L (99-107); CREATININE 1.33 MG/DL (0.60-1.10); GLUCOSE 219 MG/DL (70-104); POTASSIUM 4.8 MMOL/L (3.5-5.1); SODIUM 135 MMOL/L (135-145); TOTAL CARBON DIOXIDE 26.2 MMOL/L (24-32); eGFR 54 ML/MIN
[2017-09-23 06:00] VITALS: BP 142/98
[2017-09-23] MEDS: nicotine 21mg patch - 24 hr TD SCH (07:22)
[2017-09-23] MEDS: lactobacillus rhamnosus 10,000 MMU CELLS/CAPSULE PO SCH ×2 (07:22→21:09)
[2017-09-23] MEDS: metoprolol succinate 25mg (24-HOUR) SR. Tablet PO SCH ×2 (07:22→21:10)
[2017-09-23] MEDS: levoTHYROXINE 25mcg tablet PO SCH (07:23)
[2017-09-23] MEDS: multivitamins, therapeutics tablet PO SCH (07:23)
[2017-09-23] MEDS: lisinopril 2.5mg tablet PO SCH (07:23)
[2017-09-23] MEDS: diltiazem CD 180mg cap (once-daily) PO SCH (07:23)
[2017-09-23] MEDS: methylPREDNISolone sod succ 125mg/2ml vial IV SCH (07:23)
[2017-09-23] MEDS: magnesium hydroxide 30ml (MOM) UD suspension PO PRN (07:34)
[2017-09-23] MEDS: docusate sod 250mg capsule PO PRN (07:34)
[2017-09-23] MEDS: aspirin 325mg tablet PO SCH (07:34)
[2017-09-23] MEDS: fluticasone/vilanterol 200mcg/25mcg inhaler IH SCH (08:47)
[2017-09-23 11:00] VITALS: BP 146/99
[2017-09-23] MEDS: levoFLOXACIN 750MG TABLET PO SCH (11:51)
[2017-09-23 15:00] VITALS: BP 164/114
[2017-09-23] MEDS: OXAZEpam 15mg capsule PO PRN (16:13)
[2017-09-23] MEDS: bisacodyl 10mg suppository rectal RC PRN (16:21)
[2017-09-23] MEDS: LORazepam 0.5 MG tablet PO PRN (17:37)
[2017-09-23 19:00] VITALS: BP 145/105
[2017-09-23] MEDS: insulin glargine (Lantus) pen - multi-dose SQ SCH (21:00)
[2017-09-23] MEDS: dabigatran 150mg capsule PO SCH (21:09)
[2017-09-23] MEDS: gabapentin 300mg capsule PO SCH (21:09)
[2017-09-23] MEDS: risperiDONE 0.5mg tablet PO SCH (21:09)
[2017-09-23 23:00] VITALS: BP 150/101
[2017-09-24 03:00] VITALS: BP 181/116
[2017-09-24] MEDS ORDERED: metoprolol tartrate 50mg tablet PO ONE (03:25)
[2017-09-24 05:32] LABS: BASOPHILS % (AUTO) 0.2 % (0-1); EOSINOPHILS # (AUTO) 0.2 X10'3 (0-0.9); EOSINOPHILS % (AUTO) 1.1 % (0-6); HEMATOCRIT 45.8 % (42.0-52.0); HEMOGLOBIN 15.4 g/dl (14.0-17.9); LYMPHOCYTES # (AUTO) 1.2 X10'3 (1.1-4.8); LYMPHOCYTES % (AUTO) 8.2 % (21-51); MEAN CORPUSCULAR HEMOGLOBIN 29.6 PG (27.0-31.0); MEAN CORPUSCULAR HGB CONC 33.7 % (33.0-36.5); MEAN PLATELET VOLUME 8.6 FL (7.4-10.4); MONOCYTES # (AUTO) 1.3 X10'3 (0-0.9); MONOCYTES % (AUTO) 8.5 % (2-12); NEUTROPHILS # (AUTO) 12.4 X10'3 (1.8-7.7); PLATELET COUNT 172 X10'3 (140-440); RED BLOOD COUNT 5.21 X10'6 (4.70-6.10); RED CELL DISTRIBUTION WIDTH 14.6 % (11.5-14.5); WHITE BLOOD COUNT 15.1 X10'3 (4.5-11.0)
[2017-09-24 05:52] LABS: ALBUMIN 3.1 G/DL (3.4-5.0); ANION GAP 9 (8-16); BLOOD UREA NITROGEN 30 MG/DL (7-18); BUN/CREATININE RATIO 25.9 (5.4-32.0); CALCIUM 8.4 MG/DL (8.5-10.1); CHLORIDE 98 MMOL/L (99-107); CREATININE 1.16 MG/DL (0.60-1.10); GLUCOSE 137 MG/DL (70-104); POTASSIUM 3.6 MMOL/L (3.5-5.1); SODIUM 132 MMOL/L (135-145); TOTAL CARBON DIOXIDE 24.7 MMOL/L (24-32); eGFR 63 ML/MIN
[2017-09-24 06:00] VITALS: BP 139/97
[2017-09-24] MEDS: diltiazem CD 180mg cap (once-daily) PO SCH (07:40)
[2017-09-24] MEDS: multivitamins, therapeutics tablet PO SCH (07:40)
[2017-09-24] MEDS: levoTHYROXINE 25mcg tablet PO SCH (07:40)
[2017-09-24] MEDS: lisinopril 2.5mg tablet PO SCH (07:40)
[2017-09-24] MEDS: lactobacillus rhamnosus 10,000 MMU CELLS/CAPSULE PO SCH ×2 (07:40→20:31)
[2017-09-24] MEDS: nicotine 21mg patch - 24 hr TD SCH (07:41)
[2017-09-24] MEDS: dabigatran 150mg capsule PO SCH ×2 (07:41→20:28)
[2017-09-24] MEDS: metoprolol succinate 25mg (24-HOUR) SR. Tablet PO SCH ×2 (07:41→20:28)
[2017-09-24] MEDS: aspirin 325mg tablet PO SCH (07:55)
[2017-09-24] MEDS: predniSONE 20 mg tablet PO SCH (07:55)
[2017-09-24] MEDS: fluticasone/vilanterol 200mcg/25mcg inhaler IH SCH (08:09)
[2017-09-24] MEDS: albuterol 2.5 MG/3 ML nebule NEB PRN (08:13)
[2017-09-24 11:00] VITALS: BP 164/111
[2017-09-24] MEDS: levoFLOXACIN 750MG TABLET PO SCH (11:22)
[2017-09-24] MEDS ORDERED: hydrALAZINE 20mg/ml inj. IV PRN (13:30)
[2017-09-24] MEDS: bisacodyl 10mg suppository rectal RC PRN (13:55)
[2017-09-24] MEDS: docusate sod 250mg capsule PO PRN (13:55)
[2017-09-24] MEDS: lisinopril 5mg tablet PO SCH (13:56)
[2017-09-24] MEDS: OXAZEpam 15mg capsule PO PRN (13:56)
[2017-09-24 15:00] VITALS: BP 160/106
[2017-09-24] MEDS: LORazepam 0.5 MG tablet PO PRN (17:27)
[2017-09-24] MEDS ORDERED: hydrALAZINE 20mg/ml inj. IV ONE (18:00)
[2017-09-24] MEDS: risperiDONE 0.5mg tablet PO SCH (20:27)
[2017-09-24] MEDS: gabapentin 300mg capsule PO SCH (20:28)
[2017-09-24] MEDS: insulin glargine (Lantus) pen - multi-dose SQ SCH (21:00)
[2017-09-25 02:55] VITALS: BP 151/111
[2017-09-25 05:17] LABS: BASOPHILS % (AUTO) 0.3 % (0-1); EOSINOPHILS # (AUTO) 0.1 X10'3 (0-0.9); EOSINOPHILS % (AUTO) 0.9 % (0-6); HEMATOCRIT 50.2 % (42.0-52.0); HEMOGLOBIN 16.6 g/dl (14.0-17.9); LYMPHOCYTES # (AUTO) 1.3 X10'3 (1.1-4.8); LYMPHOCYTES % (AUTO) 8.8 % (21-51); MEAN CORPUSCULAR HEMOGLOBIN 29.3 PG (27.0-31.0); MEAN CORPUSCULAR HGB CONC 33.2 % (33.0-36.5); MEAN CORPUSCULAR VOLUME 88.4 FL (78-98); MEAN PLATELET VOLUME 8.6 FL (7.4-10.4); MONOCYTES # (AUTO) 1.3 X10'3 (0-0.9); MONOCYTES % (AUTO) 8.9 % (2-12); NEUTROPHILS # (AUTO) 11.8 X10'3 (1.8-7.7); NEUTROPHILS % (AUTO) 81.1 % (42-75); PLATELET COUNT 197 X10'3 (140-440); RED BLOOD COUNT 5.68 X10'6 (4.70-6.10); RED CELL DISTRIBUTION WIDTH 14.4 % (11.5-14.5); WHITE BLOOD COUNT 14.6 X10'3 (4.5-11.0)
[2017-09-25 05:30] LABS: ANION GAP 12 (8-16); BLOOD UREA NITROGEN 27 MG/DL (7-18); CALCIUM 8.6 MG/DL (8.5-10.1); CHLORIDE 97 MMOL/L (99-107); CREATININE 1.08 MG/DL (0.60-1.10); GLUCOSE 150 MG/DL (70-104); POTASSIUM 3.6 MMOL/L (3.5-5.1); SODIUM 131 MMOL/L (135-145); TOTAL CARBON DIOXIDE 22.5 MMOL/L (24-32); eGFR 69 ML/MIN
[2017-09-25 06:00] VITALS: BP 149/107
[2017-09-25] MEDS: lactobacillus rhamnosus 10,000 MMU CELLS/CAPSULE PO SCH ×2 (07:24→20:21)
[2017-09-25] MEDS: levoTHYROXINE 25mcg tablet PO SCH (07:24)
[2017-09-25] MEDS: dabigatran 150mg capsule PO SCH ×2 (07:24→20:21)
[2017-09-25] MEDS: diltiazem CD 180mg cap (once-daily) PO SCH (07:25)
[2017-09-25] MEDS: nicotine 21mg patch - 24 hr TD SCH (07:25)
[2017-09-25] MEDS: multivitamins, therapeutics tablet PO SCH (07:25)
[2017-09-25] MEDS: metoprolol succinate 25mg (24-HOUR) SR. Tablet PO SCH ×2 (07:25→20:22)
[2017-09-25] MEDS: lisinopril 2.5mg tablet PO SCH (07:26)
[2017-09-25] MEDS: lisinopril 5mg tablet PO SCH ×3 (07:28→20:22)
[2017-09-25] MEDS ORDERED: diltiazem CD 120mg capsule (once-daily) PO SCH (08:00)
[2017-09-25] MEDS: predniSONE 20 mg tablet PO SCH (08:20)
[2017-09-25] MEDS: aspirin 325mg tablet PO SCH (08:20)
[2017-09-25] MEDS: fluticasone/vilanterol 200mcg/25mcg inhaler IH SCH (08:43)
[2017-09-25] MEDS ORDERED: lisinopril 5mg tablet PO ONE (10:30)
[2017-09-25 11:00] VITALS: BP_SYST 122; BP_SYST 155; BP_DIAS 101; BP_DIAS 70
[2017-09-25] MEDS: insulin Lispro (HumaLOG) vial - multi-dose SQ SCH ×2 (13:00→19:21)
[2017-09-25 15:00] VITALS: BP 145/98
[2017-09-25 18:00] VITALS: BP 151/107
[2017-09-25] MEDS: gabapentin 300mg capsule PO SCH (20:21)
[2017-09-25] MEDS: risperiDONE 0.5mg tablet PO SCH (20:29)
[2017-09-25] MEDS: insulin glargine (Lantus) pen - multi-dose SQ SCH (21:27)
[2017-09-25 22:00] VITALS: BP 140/94
[2017-09-26 02:00] VITALS: BP 122/84
[2017-09-26] MEDS: acetaminophen 325mg tablet PO PRN (04:27)
[2017-09-26 05:24] LABS: BASOPHILS % (AUTO) 0 % (0-1); EOSINOPHILS # (AUTO) 0.3 X10'3 (0-0.9); EOSINOPHILS % (AUTO) 1.6 % (0-6); HEMATOCRIT 50.4 % (42.0-52.0); HEMOGLOBIN 16.9 g/dl (14.0-17.9); LYMPHOCYTES # (AUTO) 1.2 X10'3 (1.1-4.8); LYMPHOCYTES % (AUTO) 6.3 % (21-51); MEAN CORPUSCULAR HEMOGLOBIN 29.7 PG (27.0-31.0); MEAN CORPUSCULAR HGB CONC 33.6 % (33.0-36.5); MEAN CORPUSCULAR VOLUME 88.4 FL (78-98); MEAN PLATELET VOLUME 8.7 FL (7.4-10.4); MONOCYTES # (AUTO) 1.5 X10'3 (0-0.9); MONOCYTES % (AUTO) 7.7 % (2-12); NEUTROPHILS # (AUTO) 16.1 X10'3 (1.8-7.7); NEUTROPHILS % (AUTO) 84.4 % (42-75); PLATELET COUNT 218 X10'3 (140-440); RED CELL DISTRIBUTION WIDTH 14.6 % (11.5-14.5); WHITE BLOOD COUNT 19.1 X10'3 (4.5-11.0)
[2017-09-26 05:57] LABS: ALANINE AMINOTRANSFERASE 30 U/L (12-78); ALBUMIN 2.9 G/DL (3.4-5.0); ALBUMIN/GLOBULIN RATIO 0.8 (1.1-1.5); ALKALINE PHOSPHATASE 70 IU/L (46-116); ANION GAP 10 (8-16); ASPARTATE AMINO TRANSFERASE 11 U/L (10-37); BILIRUBIN,TOTAL 0.7 MG/DL (0.1-1.0); BLOOD UREA NITROGEN 37 MG/DL (7-18); BUN/CREATININE RATIO 28.9 (5.4-32.0); CALCIUM 8.1 MG/DL (8.5-10.1); CHLORIDE 96 MMOL/L (99-107); CREATININE 1.28 MG/DL (0.60-1.10); GLUCOSE 166 MG/DL (70-104); MAGNESIUM 2.4 MG/DL (1.5-2.4); PHOSPHORUS 3.9 MG/DL (2.3-4.5); POTASSIUM 3.7 MMOL/L (3.5-5.1); SODIUM 130 MMOL/L (135-145); TOTAL CARBON DIOXIDE 24.5 MMOL/L (24-32); TOTAL PROTEIN 6.7 G/DL (6.4-8.2); eGFR 57 ML/MIN
[2017-09-26 06:00] VITALS: BP 121/84
[2017-09-26] MEDS: metoprolol succinate 25mg (24-HOUR) SR. Tablet PO SCH ×2 (07:57→20:19)
[2017-09-26] MEDS: aspirin 325mg tablet PO SCH (07:57)
[2017-09-26] MEDS: predniSONE 20 mg tablet PO SCH (07:57)
[2017-09-26] MEDS: multivitamins, therapeutics tablet PO SCH (07:57)
[2017-09-26] MEDS: lactobacillus rhamnosus 10,000 MMU CELLS/CAPSULE PO SCH ×2 (07:57→20:19)
[2017-09-26] MEDS: levoTHYROXINE 25mcg tablet PO SCH (07:57)
[2017-09-26] MEDS: lisinopril 5mg tablet PO SCH ×2 (07:57→20:19)
[2017-09-26] MEDS: diltiazem CD 180mg cap (once-daily) PO SCH (07:57)
[2017-09-26] MEDS: dabigatran 150mg capsule PO SCH ×2 (07:58→20:18)
[2017-09-26] MEDS: nicotine 21mg patch - 24 hr TD SCH (07:58)
[2017-09-26] MEDS: insulin Lispro (HumaLOG) vial - multi-dose SQ SCH ×3 (08:42→20:17)
[2017-09-26] MEDS: albuterol 2.5 MG/3 ML nebule NEB PRN (08:46)
[2017-09-26 11:00] VITALS: BP 106/80
[2017-09-26] MEDS: CefTRIAXone 2gm/D5W 50ml 50 ML IV SCH (12:27)
[2017-09-26 15:00] VITALS: BP 101/72
[2017-09-26 18:00] VITALS: BP 120/84
[2017-09-26] MEDS: gabapentin 300mg capsule PO SCH (20:19)
[2017-09-26] MEDS: risperiDONE 0.5mg tablet PO SCH (20:20)
[2017-09-26] MEDS: insulin glargine (Lantus) pen - multi-dose SQ SCH (21:28)
[2017-09-26 22:00] VITALS: BP 125/88
[2017-09-27 02:00] VITALS: BP 108/79
[2017-09-27 06:00] VITALS: BP 104/74
[2017-09-27] MEDS: lisinopril 5mg tablet PO SCH ×2 (07:19→19:58)
[2017-09-27] MEDS: multivitamins, therapeutics tablet PO SCH (07:19)
[2017-09-27] MEDS: CefTRIAXone 2gm/D5W 50ml 50 ML IV SCH (07:19)
[2017-09-27] MEDS: dabigatran 150mg capsule PO SCH ×2 (07:19→19:59)
[2017-09-27] MEDS: levoTHYROXINE 25mcg tablet PO SCH (07:19)
[2017-09-27] MEDS: metoprolol succinate 25mg (24-HOUR) SR. Tablet PO SCH ×2 (07:19→19:59)
[2017-09-27] MEDS: prednisone 10mg tablet PO SCH (07:20)
[2017-09-27] MEDS: diltiazem CD 180mg cap (once-daily) PO SCH (07:20)
[2017-09-27] MEDS: lactobacillus rhamnosus 10,000 MMU CELLS/CAPSULE PO SCH ×2 (07:20→19:58)
[2017-09-27] MEDS: nicotine 21mg patch - 24 hr TD SCH (07:24)
[2017-09-27] MEDS: aspirin 325mg tablet PO SCH (08:11)
[2017-09-27] MEDS: insulin Lispro (HumaLOG) vial - multi-dose SQ SCH ×2 (08:14→12:45)
[2017-09-27] MEDS: fluticasone/vilanterol 200mcg/25mcg inhaler IH SCH (09:14)
[2017-09-27 09:28] LABS: BASOPHILS # (AUTO) 0.1 X10'3 (0-0.2); BASOPHILS % (AUTO) 0.5 % (0-1); EOSINOPHILS # (AUTO) 0.4 X10'3 (0-0.9); EOSINOPHILS % (AUTO) 1.9 % (0-6); HEMOGLOBIN 16.3 g/dl (14.0-17.9); LYMPHOCYTES # (AUTO) 1.2 X10'3 (1.1-4.8); LYMPHOCYTES % (AUTO) 6.4 % (21-51); MEAN CORPUSCULAR HEMOGLOBIN 29.6 PG (27.0-31.0); MEAN CORPUSCULAR HGB CONC 33.2 % (33.0-36.5); MEAN PLATELET VOLUME 8.7 FL (7.4-10.4); MONOCYTES # (AUTO) 1.3 X10'3 (0-0.9); NEUTROPHILS # (AUTO) 16.2 X10'3 (1.8-7.7); NEUTROPHILS % (AUTO) 84.2 % (42-75); PLATELET COUNT 237 X10'3 (140-440); RED CELL DISTRIBUTION WIDTH 14.4 % (11.5-14.5); WHITE BLOOD COUNT 19.2 X10'3 (4.5-11.0)
[2017-09-27 09:47] LABS: ALBUMIN 2.7 G/DL (3.4-5.0); ANION GAP 10 (8-16); BLOOD UREA NITROGEN 42 MG/DL (7-18); BUN/CREATININE RATIO 30.4 (5.4-32.0); CALCIUM 8.1 MG/DL (8.5-10.1); CHLORIDE 97 MMOL/L (99-107); CREATININE 1.38 MG/DL (0.60-1.10); GLUCOSE 211 MG/DL (70-104); POTASSIUM 4.1 MMOL/L (3.5-5.1); SODIUM 131 MMOL/L (135-145); TOTAL CARBON DIOXIDE 23.8 MMOL/L (24-32); eGFR 52 ML/MIN
[2017-09-27 11:00] VITALS: BP 99/70
[2017-09-27 15:00] VITALS: BP 136/64
[2017-09-27 19:00] VITALS: BP 116/83
[2017-09-27] MEDS: risperiDONE 0.5mg tablet PO SCH (20:02)
[2017-09-27] MEDS: gabapentin 300mg capsule PO SCH (20:02)
[2017-09-27] MEDS: insulin glargine (Lantus) pen - multi-dose SQ SCH (21:00)
[2017-09-27 23:00] VITALS: BP 95/82
[2017-09-28] VITALS (8 sets, daily range): BP systolic 94–129; BP diastolic 67–87
[2017-09-28] MEDS: diltiazem CD 180mg cap (once-daily) PO SCH (07:48)
[2017-09-28] MEDS: prednisone 10mg tablet PO SCH (07:48)
[2017-09-28] MEDS: lisinopril 5mg tablet PO SCH ×2 (07:48→20:50)
[2017-09-28] MEDS: CefTRIAXone 2gm/D5W 50ml 50 ML IV SCH (07:48)
[2017-09-28] MEDS: nicotine 21mg patch - 24 hr TD SCH (07:49)
[2017-09-28] MEDS: lactobacillus rhamnosus 10,000 MMU CELLS/CAPSULE PO SCH ×2 (07:49→20:49)
[2017-09-28] MEDS: multivitamins, therapeutics tablet PO SCH (07:49)
[2017-09-28] MEDS: levoTHYROXINE 25mcg tablet PO SCH (07:49)
[2017-09-28] MEDS: aspirin 325mg tablet PO SCH (07:49)
[2017-09-28] MEDS: metoprolol succinate 25mg (24-HOUR) SR. Tablet PO SCH ×2 (07:49→20:49)
[2017-09-28] MEDS: fluticasone/vilanterol 200mcg/25mcg inhaler IH SCH (08:00)
[2017-09-28] MEDS: dabigatran 150mg capsule PO SCH ×2 (08:57→20:49)
[2017-09-28] MEDS ORDERED: polyethylene glycol 3350 17gm powd pack PO ONE (13:45)
[2017-09-28] MEDS: mag hydrox/Alum hydrox/simeth 30ml oral suspension PO PRN (17:24)
[2017-09-28] MEDS: LORazepam 0.5 MG tablet PO PRN ×2 (17:24→21:22)
[2017-09-28] MEDS: risperiDONE 0.5mg tablet PO SCH (20:51)
[2017-09-28] MEDS: gabapentin 300mg capsule PO SCH (20:52)
[2017-09-28] MEDS: magnesium hydroxide 30ml (MOM) UD suspension PO PRN (21:01)
[2017-09-28] MEDS: insulin glargine (Lantus) pen - multi-dose SQ SCH (21:14)
[2017-09-29] MEDS: LORazepam 0.5 MG tablet PO PRN ×2 (01:38→12:25)
[2017-09-29] MEDS: zolpidem 5mg tablet PO PRN (01:40)
[2017-09-29 03:00] VITALS: BP 97/70
[2017-09-29 05:54] LABS: BASOPHILS % (AUTO) 0.2 % (0-1); EOSINOPHILS # (AUTO) 0.4 X10'3 (0-0.9); EOSINOPHILS % (AUTO) 2.2 % (0-6); HEMATOCRIT 43.8 % (42.0-52.0); HEMOGLOBIN 14.9 g/dl (14.0-17.9); MEAN CORPUSCULAR HEMOGLOBIN 29.9 PG (27.0-31.0); MONOCYTES # (AUTO) 1.8 X10'3 (0-0.9); MONOCYTES % (AUTO) 11.1 % (2-12); NEUTROPHILS # (AUTO) 12.3 X10'3 (1.8-7.7); NEUTROPHILS % (AUTO) 74.5 % (42-75); PLATELET COUNT 201 X10'3 (140-440); RED BLOOD COUNT 4.98 X10'6 (4.70-6.10); RED CELL DISTRIBUTION WIDTH 14.3 % (11.5-14.5); WHITE BLOOD COUNT 16.6 X10'3 (4.5-11.0)
[2017-09-29 06:00] VITALS: BP 102/69
[2017-09-29 06:18] LABS: ALBUMIN 2.5 G/DL (3.4-5.0); ANION GAP 8 (8-16); BLOOD UREA NITROGEN 37 MG/DL (7-18); BUN/CREATININE RATIO 30.6 (5.4-32.0); CALCIUM 7.9 MG/DL (8.5-10.1); CHLORIDE 98 MMOL/L (99-107); CREATININE 1.21 MG/DL (0.60-1.10); GLUCOSE 105 MG/DL (70-104); POTASSIUM 4.1 MMOL/L (3.5-5.1); SODIUM 131 MMOL/L (135-145); TOTAL CARBON DIOXIDE 25.1 MMOL/L (24-32); eGFR 60 ML/MIN
[2017-09-29] MEDS: magnesium hydroxide 30ml (MOM) UD suspension PO PRN (07:03)
[2017-09-29] MEDS: CefTRIAXone 2gm/D5W 50ml 50 ML IV SCH (07:03)
[2017-09-29] MEDS: dabigatran 150mg capsule PO SCH ×2 (07:04→19:58)
[2017-09-29] MEDS: diltiazem CD 180mg cap (once-daily) PO SCH (07:04)
[2017-09-29] MEDS: aspirin 325mg tablet PO SCH (07:04)
[2017-09-29] MEDS: lisinopril 5mg tablet PO SCH ×2 (07:04→19:57)
[2017-09-29] MEDS: levoTHYROXINE 25mcg tablet PO SCH (07:04)
[2017-09-29] MEDS: multivitamins, therapeutics tablet PO SCH (07:04)
[2017-09-29] MEDS: metoprolol succinate 25mg (24-HOUR) SR. Tablet PO SCH ×2 (07:04→19:57)
[2017-09-29] MEDS: lactobacillus rhamnosus 10,000 MMU CELLS/CAPSULE PO SCH ×2 (07:04→19:56)
[2017-09-29] MEDS: docusate sod 250mg capsule PO PRN (07:04)
[2017-09-29] MEDS: nicotine 21mg patch - 24 hr TD SCH (07:05)
[2017-09-29] MEDS: fluticasone/vilanterol 200mcg/25mcg inhaler IH SCH (07:40)
[2017-09-29 11:00] VITALS: BP 90/60
[2017-09-29] MEDS: mag hydrox/Alum hydrox/simeth 30ml oral suspension PO PRN (12:25)
[2017-09-29 16:24] VITALS: BP 111/68
[2017-09-29 19:00] VITALS: BP 107/67
[2017-09-29] MEDS: insulin glargine (Lantus) pen - multi-dose SQ SCH (21:00)
[2017-09-29] MEDS: gabapentin 300mg capsule PO SCH (21:10)
[2017-09-29] MEDS: risperiDONE 0.5mg tablet PO SCH (21:10)
[2017-09-29 23:00] VITALS: BP 109/67
[2017-09-30 03:00] VITALS: BP 108/80
[2017-09-30 05:22] LABS: BASOPHILS % (AUTO) 0.1 % (0-1); EOSINOPHILS # (AUTO) 0.3 X10'3 (0-0.9); EOSINOPHILS % (AUTO) 1.7 % (0-6); HEMATOCRIT 42.8 % (42.0-52.0); HEMOGLOBIN 14.5 g/dl (14.0-17.9); LYMPHOCYTES # (AUTO) 1.7 X10'3 (1.1-4.8); LYMPHOCYTES % (AUTO) 10.3 % (21-51); MEAN CORPUSCULAR HEMOGLOBIN 29.7 PG (27.0-31.0); MEAN CORPUSCULAR HGB CONC 33.9 % (33.0-36.5); MEAN CORPUSCULAR VOLUME 87.7 FL (78-98); MEAN PLATELET VOLUME 8.2 FL (7.4-10.4); MONOCYTES # (AUTO) 1.5 X10'3 (0-0.9); MONOCYTES % (AUTO) 8.9 % (2-12); NEUTROPHILS # (AUTO) 13.1 X10'3 (1.8-7.7); PLATELET COUNT 190 X10'3 (140-440); RED BLOOD COUNT 4.88 X10'6 (4.70-6.10); WHITE BLOOD COUNT 16.5 X10'3 (4.5-11.0)
[2017-09-30 05:42] LABS: ALBUMIN 2.4 G/DL (3.4-5.0); ANION GAP 7 (8-16); BLOOD UREA NITROGEN 30 MG/DL (7-18); BUN/CREATININE RATIO 25.4 (5.4-32.0); CALCIUM 7.9 MG/DL (8.5-10.1); CHLORIDE 99 MMOL/L (99-107); CREATININE 1.18 MG/DL (0.60-1.10); GLUCOSE 116 MG/DL (70-104); POTASSIUM 4.1 MMOL/L (3.5-5.1); SODIUM 131 MMOL/L (135-145); TOTAL CARBON DIOXIDE 24.6 MMOL/L (24-32); eGFR 62 ML/MIN
[2017-09-30 06:00] VITALS: BP 87/61
[2017-09-30] MEDS: fluticasone/vilanterol 200mcg/25mcg inhaler IH SCH (07:39)
[2017-09-30] MEDS: aspirin 325mg tablet PO SCH (07:55)
[2017-09-30] MEDS: dabigatran 150mg capsule PO SCH ×2 (07:56→20:33)
[2017-09-30] MEDS: CefTRIAXone 2gm/D5W 50ml 50 ML IV SCH (07:56)
[2017-09-30] MEDS: lactobacillus rhamnosus 10,000 MMU CELLS/CAPSULE PO SCH ×2 (07:56→20:33)
[2017-09-30] MEDS: nicotine 21mg patch - 24 hr TD SCH (07:56)
[2017-09-30] MEDS: levoTHYROXINE 25mcg tablet PO SCH (07:57)
[2017-09-30] MEDS: acetaminophen 325mg tablet PO PRN ×3 (07:57→22:31)
[2017-09-30] MEDS: multivitamins, therapeutics tablet PO SCH (07:58)
[2017-09-30] MEDS: metoprolol succinate 25mg (24-HOUR) SR. Tablet PO SCH ×2 (08:00→20:32)
[2017-09-30] MEDS: lisinopril 5mg tablet PO SCH ×2 (08:00→20:32)
[2017-09-30] MEDS: diltiazem CD 180mg cap (once-daily) PO SCH (08:00)
[2017-09-30 11:00] VITALS: BP 89/60
[2017-09-30] MEDS: ondansetron/PF 4mg/2ml inj IV PRN (13:32)
[2017-09-30] MEDS: polyethylene glycol 3350 17gm powd pack PO PRN (13:38)
[2017-09-30 15:00] VITALS: BP 95/68
[2017-09-30] MEDS: magnesium hydroxide 30ml (MOM) UD suspension PO PRN (17:23)
[2017-09-30] MEDS: insulin Lispro (HumaLOG) vial - multi-dose SQ SCH (18:45)
[2017-09-30 19:00] VITALS: BP 113/74
[2017-09-30] MEDS: gabapentin 300mg capsule PO SCH (20:32)
[2017-09-30] MEDS: risperiDONE 0.5mg tablet PO SCH (20:33)
[2017-09-30] MEDS: insulin glargine (Lantus) pen - multi-dose SQ SCH (20:42)
[2017-09-30 23:00] VITALS: BP 106/70
[2017-10-01 03:00] VITALS: BP 92/63
[2017-10-01 05:26] LABS: BASOPHILS % (AUTO) 0.1 % (0-1); EOSINOPHILS # (AUTO) 0.4 X10'3 (0-0.9); EOSINOPHILS % (AUTO) 2.4 % (0-6); HEMATOCRIT 41.4 % (42.0-52.0); LYMPHOCYTES # (AUTO) 1.6 X10'3 (1.1-4.8); LYMPHOCYTES % (AUTO) 9.7 % (21-51); MEAN CORPUSCULAR HEMOGLOBIN 29.8 PG (27.0-31.0); MEAN CORPUSCULAR HGB CONC 33.8 % (33.0-36.5); MEAN CORPUSCULAR VOLUME 88.2 FL (78-98); MEAN PLATELET VOLUME 8.4 FL (7.4-10.4); MONOCYTES # (AUTO) 1.2 X10'3 (0-0.9); MONOCYTES % (AUTO) 7.6 % (2-12); NEUTROPHILS # (AUTO) 12.9 X10'3 (1.8-7.7); NEUTROPHILS % (AUTO) 80.2 % (42-75); PLATELET COUNT 178 X10'3 (140-440); RED BLOOD COUNT 4.69 X10'6 (4.70-6.10); RED CELL DISTRIBUTION WIDTH 14.2 % (11.5-14.5)
[2017-10-01 05:44] LABS: ALBUMIN 2.4 G/DL (3.4-5.0); ANION GAP 5 (8-16); BLOOD UREA NITROGEN 29 MG/DL (7-18); BUN/CREATININE RATIO 21.5 (5.4-32.0); CALCIUM 7.8 MG/DL (8.5-10.1); CHLORIDE 97 MMOL/L (99-107); CREATININE 1.35 MG/DL (0.60-1.10); GLUCOSE 109 MG/DL (70-104); POTASSIUM 4.2 MMOL/L (3.5-5.1); SODIUM 132 MMOL/L (135-145); TOTAL CARBON DIOXIDE 30.3 MMOL/L (24-32); eGFR 53 ML/MIN
[2017-10-01 06:00] VITALS: BP 106/73
[2017-10-01] MEDS: acetaminophen 325mg tablet PO PRN ×3 (06:55→17:48)
[2017-10-01] MEDS: multivitamins, therapeutics tablet PO SCH (07:54)
[2017-10-01] MEDS: metoprolol succinate 25mg (24-HOUR) SR. Tablet PO SCH ×2 (07:54→20:38)
[2017-10-01] MEDS: polyethylene glycol 3350 17gm powd pack PO PRN (07:54)
[2017-10-01] MEDS: lisinopril 5mg tablet PO SCH ×2 (07:55→20:38)
[2017-10-01] MEDS: levoTHYROXINE 25mcg tablet PO SCH (07:55)
[2017-10-01] MEDS: dabigatran 150mg capsule PO SCH ×2 (07:55→20:38)
[2017-10-01] MEDS: lactobacillus rhamnosus 10,000 MMU CELLS/CAPSULE PO SCH ×2 (07:55→20:38)
[2017-10-01] MEDS: diltiazem CD 180mg cap (once-daily) PO SCH (07:56)
[2017-10-01] MEDS: nicotine 21mg patch - 24 hr TD SCH (07:56)
[2017-10-01] MEDS: CefTRIAXone 2gm/D5W 50ml 50 ML IV SCH (07:56)
[2017-10-01] MEDS: aspirin 325mg tablet PO SCH (07:58)
[2017-10-01] MEDS: fluticasone/vilanterol 200mcg/25mcg inhaler IH SCH (08:06)
[2017-10-01] MEDS: albuterol 2.5 MG/3 ML nebule NEB PRN ×2 (08:07→21:04)
[2017-10-01] MEDS: insulin Lispro (HumaLOG) vial - multi-dose SQ SCH ×2 (08:14→13:11)
[2017-10-01 11:00] VITALS: BP 108/75
[2017-10-01 15:00] VITALS: BP 97/68
[2017-10-01 19:00] VITALS: BP 103/67
[2017-10-01] MEDS: famotidine 20mg tablet PO PRN (20:38)
[2017-10-01] MEDS: risperiDONE 0.5mg tablet PO SCH (20:38)
[2017-10-01] MEDS: gabapentin 300mg capsule PO SCH (20:38)
[2017-10-01] MEDS: magnesium hydroxide 30ml (MOM) UD suspension PO PRN (20:41)
[2017-10-01] MEDS: insulin glargine (Lantus) pen - multi-dose SQ SCH (20:51)
[2017-10-01] MEDS: budesonide 0.5mg/2ml UD nebule IH SCH (21:04)
[2017-10-01 23:00] VITALS: BP 89/60
[2017-10-02] VITALS (7 sets, daily range): BP systolic 78–126; BP diastolic 54–84
[2017-10-02] MEDS: lisinopril 5mg tablet PO SCH ×2 (08:00→21:00)
[2017-10-02] MEDS: diltiazem CD 180mg cap (once-daily) PO SCH (08:00)
[2017-10-02] MEDS: metoprolol succinate 25mg (24-HOUR) SR. Tablet PO SCH ×2 (08:00→20:59)
[2017-10-02] MEDS: mag hydrox/Alum hydrox/simeth 30ml oral suspension PO PRN ×2 (08:27→16:16)
[2017-10-02] MEDS: multivitamins, therapeutics tablet PO SCH (08:28)
[2017-10-02] MEDS: levoTHYROXINE 25mcg tablet PO SCH (08:28)
[2017-10-02] MEDS: lactobacillus rhamnosus 10,000 MMU CELLS/CAPSULE PO SCH ×2 (08:28→20:53)
[2017-10-02] MEDS: dabigatran 150mg capsule PO SCH ×2 (08:28→20:54)
[2017-10-02] MEDS: aspirin 325mg tablet PO SCH (08:28)
[2017-10-02] MEDS: albuterol 2.5 MG/3 ML nebule NEB SCH ×4 (08:29→19:29)
[2017-10-02] MEDS: nicotine 21mg patch - 24 hr TD SCH (08:29)
[2017-10-02] MEDS: budesonide 0.5mg/2ml UD nebule IH SCH ×2 (08:29→19:29)
[2017-10-02] MEDS: insulin Lispro (HumaLOG) vial - multi-dose SQ SCH ×2 (08:35→12:23)
[2017-10-02] MEDS: NUT.TX.GLUC.INTOLER,LAC-FR,REG (BOOST GLUCOSE CONTROL) 237 ML PO SCH ×6 (09:46→18:58)
[2017-10-02] MEDS: acetaminophen 325mg tablet PO PRN (11:51)
[2017-10-02] MEDS: gabapentin 300mg capsule PO SCH (20:55)
[2017-10-02] MEDS: risperiDONE 0.5mg tablet PO SCH (20:56)
[2017-10-02] MEDS: LORazepam 0.5 MG tablet PO PRN (21:34)
[2017-10-02] MEDS: polyethylene glycol 3350 17gm powd pack PO PRN (21:34)
[2017-10-02] MEDS: insulin glargine (Lantus) pen - multi-dose SQ SCH (21:40)
[2017-10-03 03:00] VITALS: BP 112/73
[2017-10-03 05:20] LABS: BASOPHILS % (AUTO) 0.3 % (0-1); EOSINOPHILS # (AUTO) 0.3 X10'3 (0-0.9); EOSINOPHILS % (AUTO) 1.8 % (0-6); HEMATOCRIT 38.7 % (42.0-52.0); HEMOGLOBIN 13.2 g/dl (14.0-17.9); LYMPHOCYTES # (AUTO) 1.4 X10'3 (1.1-4.8); LYMPHOCYTES % (AUTO) 8.5 % (21-51); MEAN CORPUSCULAR HEMOGLOBIN 29.9 PG (27.0-31.0); MEAN CORPUSCULAR VOLUME 87.8 FL (78-98); MEAN PLATELET VOLUME 8.5 FL (7.4-10.4); MONOCYTES # (AUTO) 1.2 X10'3 (0-0.9); MONOCYTES % (AUTO) 7.1 % (2-12); NEUTROPHILS # (AUTO) 13.8 X10'3 (1.8-7.7); NEUTROPHILS % (AUTO) 82.3 % (42-75); PLATELET COUNT 183 X10'3 (140-440); RED CELL DISTRIBUTION WIDTH 14.1 % (11.5-14.5); WHITE BLOOD COUNT 16.8 X10'3 (4.5-11.0)
[2017-10-03 05:41] LABS: ALBUMIN 2.3 G/DL (3.4-5.0); ANION GAP 9 (8-16); BLOOD UREA NITROGEN 15 MG/DL (7-18); BUN/CREATININE RATIO 14.6 (5.4-32.0); CALCIUM 8.3 MG/DL (8.5-10.1); CHLORIDE 100 MMOL/L (99-107); CREATININE 1.03 MG/DL (0.60-1.10); GLUCOSE 106 MG/DL (70-104); POTASSIUM 4.3 MMOL/L (3.5-5.1); SODIUM 135 MMOL/L (135-145); TOTAL CARBON DIOXIDE 25.7 MMOL/L (24-32); eGFR 73 ML/MIN
[2017-10-03 06:56] VITALS: BP 99/73
[2017-10-03] MEDS: lisinopril 5mg tablet PO SCH ×2 (07:02→20:47)
[2017-10-03] MEDS: diltiazem CD 180mg cap (once-daily) PO SCH (07:02)
[2017-10-03] MEDS: metoprolol succinate 25mg (24-HOUR) SR. Tablet PO SCH ×2 (07:02→20:47)
[2017-10-03] MEDS: budesonide 0.5mg/2ml UD nebule IH SCH ×2 (07:49→23:05)
[2017-10-03] MEDS: albuterol 2.5 MG/3 ML nebule NEB SCH ×4 (07:49→23:05)
[2017-10-03] MEDS: dabigatran 150mg capsule PO SCH ×2 (08:42→20:47)
[2017-10-03] MEDS: multivitamins, therapeutics tablet PO SCH (08:43)
[2017-10-03] MEDS: lactobacillus rhamnosus 10,000 MMU CELLS/CAPSULE PO SCH ×2 (08:43→20:47)
[2017-10-03] MEDS: aspirin 325mg tablet PO SCH (08:43)
[2017-10-03] MEDS: nicotine 21mg patch - 24 hr TD SCH (08:43)
[2017-10-03] MEDS: NUT.TX.GLUC.INTOLER,LAC-FR,REG (BOOST GLUCOSE CONTROL) 237 ML PO SCH ×3 (08:48→18:00)
[2017-10-03] MEDS: levoTHYROXINE 25mcg tablet PO SCH (08:59)
[2017-10-03 11:00] VITALS: BP 102/71
[2017-10-03] MEDS: ondansetron/PF 4mg/2ml inj IV PRN (12:07)
[2017-10-03 15:00] VITALS: BP 116/76
[2017-10-03 19:00] VITALS: BP 114/79
[2017-10-03] MEDS: OXAZEpam 15mg capsule PO PRN (19:22)
[2017-10-03] MEDS: risperiDONE 0.5mg tablet PO SCH (20:47)
[2017-10-03] MEDS: gabapentin 300mg capsule PO SCH (20:47)
[2017-10-03] MEDS: insulin glargine (Lantus) pen - multi-dose SQ SCH (20:55)
[2017-10-03 23:00] VITALS: BP 104/69
[2017-10-04] MEDS: famotidine 20mg tablet PO PRN (00:01)
[2017-10-04] MEDS: mag hydrox/Alum hydrox/simeth 30ml oral suspension PO PRN (00:41)
[2017-10-04 03:00] VITALS: BP 114/82
[2017-10-04 05:32] LABS: BASOPHILS % (AUTO) 0.3 % (0-1); EOSINOPHILS # (AUTO) 0.4 X10'3 (0-0.9); EOSINOPHILS % (AUTO) 2.3 % (0-6); HEMATOCRIT 35.9 % (42.0-52.0); HEMOGLOBIN 12.3 g/dl (14.0-17.9); LYMPHOCYTES # (AUTO) 1.9 X10'3 (1.1-4.8); LYMPHOCYTES % (AUTO) 11.9 % (21-51); MEAN CORPUSCULAR HGB CONC 34.2 % (33.0-36.5); MEAN CORPUSCULAR VOLUME 87.6 FL (78-98); MEAN PLATELET VOLUME 8.2 FL (7.4-10.4); MONOCYTES # (AUTO) 1.2 X10'3 (0-0.9); MONOCYTES % (AUTO) 7.2 % (2-12); NEUTROPHILS # (AUTO) 12.7 X10'3 (1.8-7.7); NEUTROPHILS % (AUTO) 78.3 % (42-75); PLATELET COUNT 193 X10'3 (140-440); RED CELL DISTRIBUTION WIDTH 13.9 % (11.5-14.5); WHITE BLOOD COUNT 16.2 X10'3 (4.5-11.0)
[2017-10-04 05:39] LABS: ALBUMIN 2.2 G/DL (3.4-5.0); ANION GAP 6 (8-16); BLOOD UREA NITROGEN 12 MG/DL (7-18); BUN/CREATININE RATIO 10.6 (5.4-32.0); CHLORIDE 100 MMOL/L (99-107); CREATININE 1.13 MG/DL (0.60-1.10); GLUCOSE 121 MG/DL (70-104); POTASSIUM 4.2 MMOL/L (3.5-5.1); SODIUM 134 MMOL/L (135-145); TOTAL CARBON DIOXIDE 28.3 MMOL/L (24-32); eGFR 65 ML/MIN
[2017-10-04 06:00] VITALS: BP 91/66
[2017-10-04] MEDS: albuterol 2.5 MG/3 ML nebule NEB SCH ×4 (07:00→19:00)
[2017-10-04] MEDS: aspirin 325mg tablet PO SCH (07:45)
[2017-10-04] MEDS: multivitamins, therapeutics tablet PO SCH (07:45)
[2017-10-04] MEDS: lactobacillus rhamnosus 10,000 MMU CELLS/CAPSULE PO SCH ×2 (07:45→20:56)
[2017-10-04] MEDS: diltiazem CD 180mg cap (once-daily) PO SCH (07:45)
[2017-10-04] MEDS: lisinopril 5mg tablet PO SCH ×3 (07:45→20:56)
[2017-10-04] MEDS: metoprolol succinate 25mg (24-HOUR) SR. Tablet PO SCH ×3 (07:45→20:56)
[2017-10-04] MEDS: dabigatran 150mg capsule PO SCH ×2 (07:46→20:56)
[2017-10-04] MEDS: levoTHYROXINE 25mcg tablet PO SCH (07:57)
[2017-10-04] MEDS: budesonide 0.5mg/2ml UD nebule IH SCH ×2 (07:58→20:14)
[2017-10-04] MEDS: NUT.TX.GLUC.INTOLER,LAC-FR,REG (BOOST GLUCOSE CONTROL) 237 ML PO SCH ×3 (08:00→18:27)
[2017-10-04] MEDS: nicotine 21mg patch - 24 hr TD SCH (08:00)
[2017-10-04] MEDS: insulin Lispro (HumaLOG) vial - multi-dose SQ SCH ×3 (08:51→18:26)
[2017-10-04 11:00] VITALS: BP 95/62
[2017-10-04 15:00] VITALS: BP 94/61
[2017-10-04 18:00] VITALS: BP 100/58
[2017-10-04 19:58] LABS: CLARITY,URINE Clear (Clear); COLOR,URINE Dark Yellow (Yellow); GLUCOSE, URINE Negative (Neg); KETONES,URINE Negative (Neg); LEUKOCYTE ESTERASE ,URINE Negative (Neg); NITRITES, URINE Negative (Neg); OCCULT BLOOD,URINE Negative (Neg); PH,URINE 6.5 (4.8-8.0); PROTEIN,URINE Trace mg/dl (Neg)
[2017-10-04 20:13] LABS: UA COLLECTION TYPE CLN CATCH MIDSTREAM
[2017-10-04 20:14] LABS: BACTERIA,URINE FEW /HPF (Neg); RBC,URINE NONE SEEN /HPF (0-2); SQUAMOUS EPITHELIAL CELL,UR FEW /LPF (FEW); WBC,URINE NONE SEEN /HPF (0-4)
[2017-10-04] MEDS: gabapentin 300mg capsule PO SCH (20:55)
[2017-10-04] MEDS: risperiDONE 0.5mg tablet PO SCH (20:57)
[2017-10-04] MEDS: insulin glargine (Lantus) pen - multi-dose SQ SCH (21:10)
[2017-10-04 22:00] VITALS: BP 106/69
[2017-10-05 02:00] VITALS: BP 95/65
[2017-10-05 06:00] VITALS: BP 98/61
[2017-10-05] MEDS: albuterol 2.5 MG/3 ML nebule NEB SCH ×2 (07:00→11:00)
[2017-10-05 07:09] LABS: BASOPHILS % (AUTO) 0.3 % (0-1); EOSINOPHILS # (AUTO) 0.3 X10'3 (0-0.9); EOSINOPHILS % (AUTO) 2.4 % (0-6); HEMOGLOBIN 11.8 g/dl (14.0-17.9); LYMPHOCYTES # (AUTO) 1.6 X10'3 (1.1-4.8); MEAN CORPUSCULAR HEMOGLOBIN 29.7 PG (27.0-31.0); MEAN CORPUSCULAR HGB CONC 33.8 % (33.0-36.5); MEAN CORPUSCULAR VOLUME 88.1 FL (78-98); MEAN PLATELET VOLUME 8.3 FL (7.4-10.4); MONOCYTES # (AUTO) 1.2 X10'3 (0-0.9); MONOCYTES % (AUTO) 8.5 % (2-12); NEUTROPHILS # (AUTO) 10.6 X10'3 (1.8-7.7); NEUTROPHILS % (AUTO) 76.8 % (42-75); PLATELET COUNT 213 X10'3 (140-440); RED BLOOD COUNT 3.98 X10'6 (4.70-6.10); RED CELL DISTRIBUTION WIDTH 13.8 % (11.5-14.5); WHITE BLOOD COUNT 13.7 X10'3 (4.5-11.0)
[2017-10-05] MEDS: lisinopril 5mg tablet PO SCH (07:27)
[2017-10-05] MEDS: levoTHYROXINE 25mcg tablet PO SCH (07:27)
[2017-10-05] MEDS: diltiazem CD 180mg cap (once-daily) PO SCH (07:27)
[2017-10-05] MEDS: lactobacillus rhamnosus 10,000 MMU CELLS/CAPSULE PO SCH (07:27)
[2017-10-05] MEDS: multivitamins, therapeutics tablet PO SCH (07:28)
[2017-10-05] MEDS: dabigatran 150mg capsule PO SCH (07:28)
[2017-10-05] MEDS: metoprolol succinate 25mg (24-HOUR) SR. Tablet PO SCH (07:28)
[2017-10-05] MEDS: nicotine 21mg patch - 24 hr TD SCH (07:29)
[2017-10-05] MEDS: aspirin 325mg tablet PO SCH (07:40)
[2017-10-05] MEDS: NUT.TX.GLUC.INTOLER,LAC-FR,REG (BOOST GLUCOSE CONTROL) 237 ML PO SCH (07:43)
[2017-10-05] MEDS: insulin Lispro (HumaLOG) vial - multi-dose SQ SCH (07:53)
[2017-10-05 08:09] LABS: ALBUMIN 2.2 G/DL (3.4-5.0); ANION GAP 8 (8-16); BLOOD UREA NITROGEN 13 MG/DL (7-18); BUN/CREATININE RATIO 12.9 (5.4-32.0); CALCIUM 8.1 MG/DL (8.5-10.1); CHLORIDE 103 MMOL/L (99-107); CREATININE 1.01 MG/DL (0.60-1.10); GLUCOSE 112 MG/DL (70-104); PHOSPHORUS 3.8 MG/DL (2.3-4.5); POTASSIUM 4.4 MMOL/L (3.5-5.1); SODIUM 137 MMOL/L (135-145); TOTAL CARBON DIOXIDE 25.6 MMOL/L (24-32); eGFR 74 ML/MIN
[2017-10-05] MEDS: budesonide 0.5mg/2ml UD nebule IH SCH (09:00)
[2017-10-05] MEDS ORDERED: LACT1CAP26 PO (09:45)
[2017-10-05] MEDS ORDERED: FAMO20TA8 PO (09:45)
[2017-10-05] MEDS ORDERED: ASPI-611 PO (09:45)
[2017-10-05] MEDS ORDERED: LISI-604 PO (09:45)
[2017-10-05 11:00] VITALS: BP 95/74
== END 2017-10-05 12:30 | disposition home health service (06) | DRG 280 ==
LOC: ER 12:35 → ED HOLD 14:29 → EDBEDREQ 17:21 → PCU 3S 17:56
PROVIDERS: ADMIT Internal Medicine; ATTEND Family Medicine
PROC: CB121ZZ Planar Nuclear Medicine Imaging of Lungs and Bronchi using Technetium 99m (Tc-99m) (ICD-10-PCS; principal; 2017-09-20)
PROC: 4A023N7 Measurement of Cardiac Sampling and Pressure, Left Heart, Percutaneous Approach (ICD-10-PCS; 2017-09-22)
PROC: B2111ZZ Fluoroscopy of Multiple Coronary Arteries using Low Osmolar Contrast (ICD-10-PCS; 2017-09-22)
PROC: B2151ZZ Fluoroscopy of Left Heart using Low Osmolar Contrast (ICD-10-PCS; 2017-09-22)
DX: I21.4 Non-ST elevation (NSTEMI) myocardial infarction (principal); G93.40 Encephalopathy, unspecified; I50.43 Acute on chronic combined systolic (congestive) and diastolic (congestive) heart failure; J18.9 Pneumonia, unspecified organism; E11.22 Type 2 diabetes mellitus with diabetic chronic kidney disease; E11.42 Type 2 diabetes mellitus with diabetic polyneuropathy; I48.92 Unspecified atrial flutter; I13.0 Hypertensive heart and chronic kidney disease with heart failure and stage 1 through stage 4 chronic kidney disease, or unspecified chronic kidney disease; I48.2 Chronic atrial fibrillation; I48.91 Unspecified atrial fibrillation; J44.1 Chronic obstructive pulmonary disease with (acute) exacerbation; I42.1 Obstructive hypertrophic cardiomyopathy; J44.0 Chronic obstructive pulmonary disease with (acute) lower respiratory infection; I08.1 Rheumatic disorders of both mitral and tricuspid valves; E03.9 Hypothyroidism, unspecified; E78.5 Hyperlipidemia, unspecified; F17.200 Nicotine dependence, unspecified, uncomplicated; F31.9 Bipolar disorder, unspecified; F41.9 Anxiety disorder, unspecified; G47.33 Obstructive sleep apnea (adult) (pediatric); F29 Unspecified psychosis not due to a substance or known physiological condition; I25.10 Atherosclerotic heart disease of native coronary artery without angina pectoris; I49.5 Sick sinus syndrome; K21.9 Gastro-esophageal reflux disease without esophagitis; Z60.2 Problems related to living alone; K59.00 Constipation, unspecified; N18.9 Chronic kidney disease, unspecified; R09.02 Hypoxemia; Z79.01 Long term (current) use of anticoagulants; Z88.8 Allergy status to other drugs, medicaments and biological substances; Z79.4 Long term (current) use of insulin; Z79.84 Long term (current) use of oral hypoglycemic drugs; Z79.82 Long term (current) use of aspirin; Z79.899 Other long term (current) drug therapy; Z86.73 Personal history of transient ischemic attack (TIA), and cerebral infarction without residual deficits; Z95.0 Presence of cardiac pacemaker
CPT/HCPCS: 36415; 36600; 71045; 71046; 78582; 80048; 80053; 80061; 81001; 82803; 82948; 83036; 83605; 83735; 83880; 84100; 84145; 84443; 84484; 85018; 85025; 85610; 85730; 87040; 87070; 93005; 93306; 93458; 94640; 94660; 94760; 96365; 96375; 97110; 97116; 97162; 97530; 99152; 99285; A4620; A6257; A6258; A9539; A9540; C1769; J0360; J0696; J1644; J1815; J1940; J2250; J2405; J2930; J3010; J3475; J3490; J7030; J7512; J7626; Q9967